=== PATIENT | male | born 1955 | race African-American/Black ===

== ENCOUNTER 2020-03-01 02:42 | Inpatient (IN) | payer MEDICARE ==
[~2020-03-01] VITALS: Ht 167.6 cm; Wt 230.0 kg
[2020-03-01 03:04] LABS: ABSOLUTE BASOPHILS 0.1 thou/uL (0.0-0.2); ABSOLUTE LYMPHOCYTES 2.5 thou/uL (0.8-5.3); ABSOLUTE MONOCYTES 1.8 thou/uL (0.0-1.2); ABSOLUTE NEUTROPHILS 12.7 thou/uL (1.6-8.1); BASOPHILS 0.5 %; EOSINOPHILS 0.1 %; HEMOGLOBIN 14.8 gm/dL (14.0-18.0); LYMPHOCYTES 14.6 %; MCH 32.2 pg (26.0-34.0); MCHC 33.7 g/dL (28.0-37.0); MCV 95.5 fL (80.0-100.0); MONOCYTES 10.5 %; MPV 8.4 fl. (7.2-11.1); NUCLEATED RBCS 0 /100WBC; PLATELET COUNT* 143 thou/uL (150-400); POLYS 74.3 %; RDW-CV 14.3 % (10.5-14.5)
[2020-03-01 03:06] VITALS: BP 147/125
[2020-03-01] MEDS ORDERED: PRINIVIL20 M1 (03:15)
[2020-03-01 03:18] LABS: CALCIUM 7.9 mg/dL (8.5-10.1); CREATININE 3.5 mg/dL (0.6-1.3); POTASSIUM 3.7 mmol/L (3.5-5.1)
[2020-03-01 03:22] LABS: ALBUMIN 3.3 g/dL (3.4-5.0); MAGNESIUM 2.4 mg/dL (1.8-2.4); TOTAL BILIRUBIN 0.6 mg/dL (<0.1-1.0); TOTAL PROTEIN 8.1 g/dL (6.4-8.2)
[2020-03-01 03:25] LABS: BE -6.6 mmol/L (-2 to +3); PCO2 31.3 mmHg (35.0-45.0); pH 7.364 (7.340-7.450)
[2020-03-01 03:28] LABS: INR 1.5; PROTIME 15.4 Seconds (9.20-11.50)
[2020-03-01 03:28] LABS: PO2 150.6 mmHg (75.0-100.0)
[2020-03-01 08:15] VITALS: BP 120/84
[2020-03-01 12:30] VITALS: BP 106/74
--- NOTE | 2020-03-01 13:37 | EKG ---
[place] [address] ELECTROCARDIOGRAM REPORT Name: TAMIA FUENTES Room: [place] [address] ADM IN [facility].#: [id number] Admission: 03/01/20 Attend Phys: Ebony Olivera, Discharge: Date of : 51 Date of Service: 03/01/20 0256 Report #: [id number] THIS REPORT FOR: //name// [facility] ED Test Date: 2020-03-01 Test Time: 02:56:17 Pat Name: TAMIA FUENTES Department: Room: [facility] Gender: M Senior Estimator: USAMA : 1955 Requested By: Na Gusman Order Number: [id number] MD: Dontrell Spicer Measurements Intervals [place] Rate: 95 P: 61 [place]: 157 QRS: -37 QRSD: 128 T: -31 QT: 437 QTc: 550 Interpretive Statements Sinus rhythm Nonspecific IVCD with LAD Inferior infarct, age indeterminate Probable anterior infarct, age indeterminate Lateral leads are also involved Artifact in lead(s) V5 No previous ECG available for comparison Electronically Signed On 03-01-2020 13:37:25 CDT by Dontrell Spicer [email or web address] <ELECTRONICALLY SIGNED> By: Dontrell Spicer MD, [facility] 03/01/20 1337 0256 0256 Dontrell Spicer MD, FAC /EPI
--- NOTE | 2020-03-01 13:39 | EKG ---
[place] [address] ELECTROCARDIOGRAM REPORT Name: TAMIA FUENTES Room: [place] [address] ADM IN [facility]#: [id number] Admission: 03/01/20 Attend Phys: Ebony Olivera, Discharge: Date of : 51 Date of Service: 03/01/20 0419 Report #: [id number] THIS REPORT FOR: //name// [facility] ED Test Date: 2020-03-01 Test Time: 04:19:57 Pat Name: TAMIA FUENTES Department: Room: [facility] Gender: M Human Services Case Manager: [place]AMA : 1955 Requested By: Na Gusman Order Number: [id number] MD: Dontrell Spicer Measurements Intervals [place] Rate: 90 P: 19 [place]: 165 QRS: -29 QRSD: 107 T: -26 QT: 456 QTc: 558 Interpretive Statements Sinus rhythm Borderline left axis deviation Probable anterior infarct, age indeterminate Lateral leads are also involved Prolonged QT interval Baseline wander in lead(s) III,aVF Compared to ECG 03/01/2020 02:56:17 Myocardial infarct finding still present Electronically Signed On 03-01-2020 13:39:17 CDT by Dontrell Spicer [email or web address] <ELECTRONICALLY SIGNED> By: Dontrell Spicer MD, [facility] 03/01/20 1339 0419 Dontrell Spicer MD, [facility] /EPI
[2020-03-01 15:11] VITALS: BP 95/65
[2020-03-01 16:26] LABS: ALBUMIN 3.5 g/dL (3.4-5.0); CALCIUM 8.1 mg/dL (8.5-10.1); CREATININE 3.4 mg/dL (0.6-1.3); MAGNESIUM 2.5 mg/dL (1.8-2.4); PHOSPHORUS* 5.3 mg/dL (2.5-4.9); POTASSIUM 3.9 mmol/L (3.5-5.1)
[2020-03-01 16:39] VITALS: BP 124/75
[2020-03-01 19:50] VITALS: BP 99/72
[2020-03-02] VITALS: BP 101/59
[2020-03-02 04:06] LABS: HEMATOCRIT 39.9 % (42.0-52.0); HEMOGLOBIN 13.3 gm/dL (14.0-18.0); MCH 31.7 pg (26.0-34.0); MCHC 33.3 g/dL (28.0-37.0); MCV 95.1 fL (80.0-100.0); RBC 4.19 mil/uL (4.50-6.00); RDW-CV 14.3 % (10.5-14.5); WBC 13.1 thou/uL (4.0-11.0)
[2020-03-02 04:21] LABS: ALBUMIN 2.9 g/dL (3.4-5.0); ALKALINE PHOSPHATASE 44 U/L (46-116); ANION GAP 8 mmol/L (7-16); BUN 61 mg/dL (7-18); CALCIUM 7.3 mg/dL (8.5-10.1); CHLORIDE 101 mmol/L (98-107); CHOLESTEROL 164 mg/dL (<200); CO2 27 mmol/L (21-32); CREATININE 2.6 mg/dL (0.6-1.3); GLUCOSE 161 mg/dL (70-99); HDL CHOLESTEROL 22 mg/dL (>40); LDL CHOLESTEROL 116 mg/dL (<100); MAGNESIUM 2.7 mg/dL (1.8-2.4); POTASSIUM 5.4 mmol/L (3.5-5.1); SGOT 26 U/L (15-37); SGPT 41 U/L (30-65); SODIUM 136 mmol/L (136-145); TC:HDL 7.5 Ratio (Not establshd); TOTAL BILIRUBIN 0.5 mg/dL (<0.1-1.0); TOTAL PROTEIN 7.2 g/dL (6.4-8.2); TRIGLYCERIDE 134 mg/dL (<150); TROPONIN-I LEVEL 0.14 ng/mL (<0.06); VLDL 27 mg/dL (<40)
[2020-03-02 04:24] LABS: SERUM ASSESSMENT Clear
[2020-03-02 08:00] VITALS: BP 101/68
[2020-03-02 08:17] LABS: URINE BILIRUBIN NEGATIVE (Negative); URINE BLOOD 2+ (Negative); URINE CLARITY CLEAR; URINE COLOR YELLOW; URINE GLUCOSE-RANDOM NEGATIVE (Negative); URINE KETONES NEGATIVE (Negative); URINE LEUKOCYTES-REFLEX NEGATIVE (Negative); URINE NITRITE-REFLEX NEGATIVE (Negative); URINE PROTEIN NEGATIVE (Negative); URINE SPECIFIC GRAVITY >= 1.030 (1.005-1.030)
[2020-03-02 08:36] LABS: BACTERIA-REFLEX 1-9 Few /HPF (None Seen); CASTS None Seen /LPF (None Seen); CRYSTALS None Seen /LPF (None Seen); SQUAMOUS 0-3 Few /LPF (0-3); URINE RBC 0-2 Rare /HPF (0-2); URINE WBC-REFLEX 0-5 Rare /HPF (0-5)
[2020-03-02 12:11] LABS: CALCIUM 7.5 mg/dL (8.5-10.1); CREATININE 2.3 mg/dL (0.6-1.3); POTASSIUM 4.7 mmol/L (3.5-5.1)
--- NOTE | 2020-03-02 12:53 | 2DMMODE ---
[place] [address] 2 D/M-MODE ECHOCARDIOGRAM Name: TAMIA FUENTES Room: [address] IN [facility]#: [id number] Admission: 03/01/20 Attend Phys: Ebony Olivera, Discharge: Date of : 51 Date of Service: 03/02/20 1252 Report #: [id number] THIS REPORT FOR: cc: FAM - No family physician/PCP FAM - No family physician/PCP Abram Pulido MD [facility] ~ APPROVED REPORT Study performed: 03/02/2020 10:45:53 EXAM: Comprehensive 2D, Doppler, and color-flow Echocardiogram Patient Location: In-Patient Room #: 200 Status: routine BSA: 2.71 HR: 74 bpm BP: 101/59 mmHg Rhythm: NSR Other Information Study Quality: Good Indications elevated BNP 2D Dimensions IVSd: 13.01 (7-11mm) LVOT Diam: 22.78 (18-24mm) LVDd: 44.26 mm PWd: 13.01 (7-11mm) Ascending Ao: 36.86 (22-36mm) LVDs: 23.85 (25-40mm) Aortic Root: 36.79 mm Volumes Left Atrial Volume (Systole) LA ESV Index: 30.80 mL/m2 Aortic Valve AoV Peak Volodymyr.: 1.45 m/s AO Peak Gr.: 8.46 mmHg LVOT Max P.22 mmHg AO Mean Gr.: 4.79 mmHg LVOT Mean P.72 mmHg LVOT Max V: 1.14 m/s AO V2 VTI: 20.27 cm LVOT Mean V: 0.77 m/s ABIMAEL (VTI): 3.59 cm2 LVOT V1 VTI: 17.88 [place] [address] 2 D/M-MODE ECHOCARDIOGRAM Name: TAMIA FUENTES Room: [address]#: [id number] Admission: 03/01/20 Attend Phys: Ebony Olivera, Discharge: Date of : 51 Date of Service: 03/02/20 1252 Report #: [id number] Mitral Valve E/A Ratio: 0.65 MV Decel. Time: 269.35 ms MV E Max Volodymyr.: 0.40 m/s MV PHT: 78.11 ms MVA (PHT): 2.82 cm2 TDI E/Lateral E': 3.64 E/Medial E': 4.44 Medial E' Volodymyr.: 0.09 m/s Lateral E' Volodymyr.: 0.11 m/s Pulmonary Valve PV Peak Volodymyr.: 0.62 m/s PV Peak Gr.: 1.55 mmHg Tricuspid Valve RAP Estimate: 15.00 mmHg TR Peak Gr.: 35.62 mmHg RVSP: 50.00 mmHg PA Pressure: 50.00 mmHg Left Ventricle The left ventricle is normal size. There is normal LV segmental wall motion. Mild concentric left ventricular hypertrophy. Left ventricular systolic function is normal. LVEF is 55-60%. Grade I - abnormal relaxation pattern. Right Ventricle Right ventricle is moderately dilated. Right ventricle is moderately hypokinetic. Atria Left atrium is moderately dilated. Right atrium is moderately dilated. Aortic Valve The aortic valve is normal in structure. No aortic regurgitation is present. There is no aortic valvular stenosis. Mitral Valve The mitral valve is normal in structure. There is no mitral valve regurgitation noted. No evidence of mitral valve stenosis. Tricuspid Valve The tricuspid valve is normal in structure. Mild tricuspid regurgitation. Moderate pulmonary hypertension. The RVSP is 50-55 [place] [address] 2 D/M-MODE ECHOCARDIOGRAM Name: TAMIA FUENTES Room: [address]#: [id number] Admission: 03/01/20 Attend Phys: Ebony Olivera, Discharge: Date of : 51 Date of Service: 03/02/20 1252 Report #: [id number] Pulmonic Valve The pulmonary valve is normal in structure. Trace pulmonic regurgitation. Great Vessels The aortic root is normal in size. IVC is dilated and collapses <50% with inspiration. Pericardium There is no pericardial effusion. <Conclusion> The left ventricle is normal size. Mild concentric left ventricular hypertrophy. Left ventricular systolic function is normal. LVEF is 55-60%. Grade I - abnormal relaxation pattern. Right ventricle is moderately dilated. Right ventricle is moderately hypokinetic. Left atrium is moderately dilated. Right atrium is moderately dilated. Mild tricuspid regurgitation. Moderate pulmonary hypertension. The RVSP is 50-55 mmHg. IVC is dilated and collapses <50% with inspiration. <ELECTRONICALLY SIGNED> By: Abram Pulido MD, FACC 03/02/20 1252 125 125 Abram Pulido MD, FACC /INF
--- NOTE | 2020-03-02 14:31 | CON ---
[address] [address] CONSULTATION Name: TAMIA FUENTES Room: [address] IN .R.#: [id number] Admission: 03/01/20 Attend Phys: Ebony Olivera MD Discharge: Date of : 51 Report #: [id number] THIS REPORT FOR: //name// cc: DAGMAR [place] No family physician/PCP DAGMAR - No family physician/PCP ~ THIS REPORT FOR: //name// CC: DAGMAR physician/PCP Ebony Olivera DATE OF SERVICE: 03/01/2020 CARDIOLOGY CONSULTATION HISTORY OF PRESENT ILLNESS: The patient is a 64-year-old single male who I was asked to see in the ER today after he complained of being short of breath. The history is obtained from the patient. There are no family members available. The patient has never been here at [facility] before. He is primarily cared for at [facility]. He is not very active because of his large size. He is 6 feet 6 inches and weighs 430 pounds. He has chronic lymphedema of his legs and wears leg wrappings. He has not been hospitalized for a long time. He states recently he has been short of breath and has been coughing. He denied any fever, chest pain, palpitations, or syncope. He has had no appetite for 5 days, but denied any vomiting or diarrhea. He finally called the ambulance and brought here to [place]'s morning. I have asked to see him for further evaluation and treatment. PAST MEDICAL HISTORY: He has had tonsillectomy. He apparently had lung lobectomy in the past for benign nodule at [facility]. He has a history of hypertension. No history of diabetes. CURRENT MEDICATIONS: Include lisinopril for blood pressure. ALLERGIES: He has no known drug allergies. FAMILY HISTORY: Negative for heart disease. SOCIAL HISTORY: He is , lives here in [place] with a friend. 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 No smoking or alcohol abuse. Has used marijuana in the past. REVIEW OF SYSTEMS: He has sleep apnea, but somebody stole his CPAP. No history of stroke. He does wear glasses. No asthma, liver disease, kidney disease, cancer, psychiatric illness, or chronic skin condition. PHYSICAL EXAMINATION: [place] [address] CONSULTATION Name: TAMIA FUENTES Room: [address]#: [id number] Admission: 03/01/20 Attend Phys: Ebony Olivera MD Discharge: Date of : 51 Report #: [id number] GENERAL: Revealed a large black male, lying in bed, appeared in no acute distress. VITAL SIGNS: He had a blood pressure of 140/90, pulse is 80. He is afebrile. HEENT: He was anicteric. Conjunctivae pink. Mucous membranes appear dry. NECK: Veins difficult to assess due to obesity. CHEST: Revealed decreased breath sounds at the bases. CARDIOVASCULAR: Regular rate and rhythm. No significant murmur. ABDOMEN: Obese. EXTREMITIES: He had severe lymphedema of both lower extremities. SKIN: Warm and dry. NEUROLOGIC: He is very slow moving. PSYCHIATRIC: Mood appeared depressed. IMAGING DATA: ECG showed a sinus rhythm, left axis deviation, poor R-wave progression, nonspecific T-wave changes were noted. His workup in the Emergency Room today included a portable chest x-ray that showed normal heart size and clear lung rice. LABORATORY DATA: Sodium 139, BUN 53, creatinine 3.5, albumin 3.3. Lactic acid 2.3. Troponin 0.39. BNP 40,761. White blood cell count 17.0, hemoglobin 14.8. IMPRESSION AND RECOMMENDATIONS: 1. Borderline elevation of troponin. No history of angina. In light of his multiple medical problems and severe obesity, I would not recommend stress testing nor cardiac catheterization at this time. 2. Abnormal ECG. Recommend echocardiogram. 3. Cough. Suspect bronchitis. 4. Chronic kidney disease. 5. Lymphedema. 6. Hypertension. The patient has been on an KAUR inhibitor. 7. History of sleep apnea. <ELECTRONICALLY SIGNED> By: Dontrell Spicer MD, FACC 03/02/20 1431 0928 1010Dasima Spicer MD, FACC /nt
--- NOTE | 2020-03-02 16:05 | EKG ---
[place] [address] ELECTROCARDIOGRAM REPORT Name: TAMIA FUENTES Room: [address] IN ..#: [id number] Admission: 03/01/20 Attend Phys: Ebony Olivera, Discharge: Date of : 51 Date of Service: 03/02/20 1208 Report #: [id number] THIS REPORT FOR: //name// [facility] Test Date: 2020-03-02 Test Time: 12:08:05 Pat Name: TAMIA FUENTES Department: Room: [facility] Gender: M Record Center Coordinator: [place] : 1955 Requested By: Dontrell Spicer Order Number: [id number] Reading MD: Dontrell Spicer Measurements Intervals [place] Rate: 73 P: 59 [place]: 141 QRS: -27 QRSD: 123 T: -5 QT: 447 QTc: 493 Interpretive Statements Sinus rhythm Multiform supraventricular premature complexes Nonspecific intraventricular conduction delay Nonspecific T abnormalities, anterior leads Compared to ECG 03/01/2020 04:19:57 Intraventricular conduction delay now present Prolonged QT interval no longer present Electronically Signed On 03-02-2020 16:04:55 CDT by Dontrell Spicer [email or web address] <ELECTRONICALLY SIGNED> By: Dontrell Spicer MD, FAC 03/02/20 1604 1208 1208 Dontrell Spicer MD, FAC /EPI
[2020-03-02 16:20] VITALS: BP 110/83
[2020-03-02 20:00] VITALS: BP 113/77
[2020-03-02 23:33] VITALS: BP 106/55
[2020-03-03 02:35] LABS: CALCIUM 7.3 mg/dL (8.5-10.1); CREATININE 2.2 mg/dL (0.6-1.3); POTASSIUM 5.1 mmol/L (3.5-5.1)
[2020-03-03 02:40] LABS: ALBUMIN 2.9 g/dL (3.4-5.0); CALCIUM 7.2 mg/dL (8.5-10.1); CREATININE 2.2 mg/dL (0.6-1.3); MAGNESIUM 2.8 mg/dL (1.8-2.4); PHOSPHORUS* 3.9 mg/dL (2.5-4.9); POTASSIUM 5.1 mmol/L (3.5-5.1)
[2020-03-03 04:00] VITALS: BP 108/61
[2020-03-03 08:00] VITALS: BP 96/77
--- NOTE | 2020-03-03 11:07 | EKG ---
[place] [address] ELECTROCARDIOGRAM REPORT Name: TAMIA FUENTES Room: [address] ADM IN .R.#: [id number] Admission: 03/01/20 Attend Phys: Ebony Olivera, Discharge: Date of : 51 Date of Service: 03/02/20 2356 Report #: [id number] THIS REPORT FOR: //name// [facility] Test Date: 2020-03-02 Test Time: 23:56:13 Pat Name: TAMIA FUENTES Department: Room: [address] Gender: M Marketing Assistant: : 1955 Requested By: Ebony Olivera Order Number: [id number] Reading MD: Dontrell Spicer Measurements Intervals [place] Rate: 125 P: [place]: QRS: -36 QRSD: 108 T: -5 QT: 318 QTc: 459 Interpretive Statements Atrial fibrillation Left axis deviation Compared to ECG 03/02/2020 12:08:05 Left-axis deviation now present Sinus rhythm no longer present Electronically Signed On 03-03-2020 11:06:47 CDT by Dontrell Spicer [email or web address] <ELECTRONICALLY SIGNED> By: Dontrell Spicer MD, [facility] 03/03/20 1106 Dontrell Spicer MD, [facility] /EPI
[2020-03-03 12:00] VITALS: BP 105/58
[2020-03-03 18:39] VITALS: BP 113/69
[2020-03-03 20:00] VITALS: BP 104/54
[2020-03-04] VITALS: BP 128/73
[2020-03-04 04:30] VITALS: BP 127/83
[2020-03-04 07:45] VITALS: BP 114/75
[2020-03-04 11:56] VITALS: BP 134/76
--- NOTE | 2020-03-04 13:13 | EKG ---
[place] [address] ELECTROCARDIOGRAM REPORT Name: TAMIA FUENTES Room: [address] ADM IN .R.#: [id number] Admission: 03/01/20 Attend Phys: Ebony Olivera, Discharge: Date of : 51 Date of Service: 03/04/20 0818 Report #: [id number] THIS REPORT FOR: //name// [facility] Test Date: 2020-03-04 Test Time: 08:18:03 Pat Name: TAMIA FUENTES Department: Room: [address] Gender: M Geographic Analyst: 1887 : 1955 Requested By: Dontrell Spicer Order Number: [id number] Reading MD: Walt Johnson Measurements Intervals [place] Rate: 60 P: 27 [place]: 161 QRS: -20 QRSD: 138 T: -15 QT: 509 QTc: 509 Interpretive Statements Sinus rhythm Nonspecific intraventricular conduction delay Abnrm T, consider ischemia, anterolateral lds Compared to ECG 03/02/2020 23:56:13 Intraventricular conduction delay now present Possible ischemia now present Atrial fibrillation no longer present Left-axis deviation no longer present Electronically Signed On 03-04-2020 13:13:02 CDT by Walt Johnson [email or web address] <ELECTRONICALLY SIGNED> By: Lawanda Johnson MD, [facility] 03/04/20 1313 7 7 Lawanda Johnson MD, [facility] /EPI
[2020-03-04 15:55] VITALS: BP 164/80
[2020-03-04 20:00] VITALS: BP 116/75
[2020-03-05] VITALS (8 sets, daily range): BP systolic 128–158; BP diastolic 52–92
[2020-03-05 07:59] LABS: ABSOLUTE LYMPHOCYTES 1.8 thou/uL (0.8-5.3); ABSOLUTE MONOCYTES 1.1 thou/uL (0.0-1.2); ABSOLUTE NEUTROPHILS 12.5 thou/uL (1.6-8.1); BASOPHILS 0.2 %; HEMATOCRIT 38.1 % (42.0-52.0); HEMOGLOBIN 12.5 gm/dL (14.0-18.0); LYMPHOCYTES 11.7 %; MCH 31.1 pg (26.0-34.0); MCHC 32.9 g/dL (28.0-37.0); MCV 94.7 fL (80.0-100.0); MONOCYTES 7.3 %; MPV 8.7 fl. (7.2-11.1); NUCLEATED RBCS 0 /100WBC; PLATELET COUNT* 169 thou/uL (150-400); POLYS 80.8 %; RBC 4.02 mil/uL (4.50-6.00); RDW-CV 14.3 % (10.5-14.5); WBC 15.5 thou/uL (4.0-11.0)
[2020-03-06] VITALS: BP 156/80
[2020-03-06 04:00] VITALS: BP 163/79
[2020-03-06 04:54] LABS: HEMATOCRIT 39.1 % (42.0-52.0); HEMOGLOBIN 13.1 gm/dL (14.0-18.0); MCH 32.1 pg (26.0-34.0); MCHC 33.4 g/dL (28.0-37.0); MPV 9.2 fl. (7.2-11.1); NUCLEATED RBCS 0 /100WBC; PLATELET COUNT* 167 thou/uL (150-400); RBC 4.07 mil/uL (4.50-6.00); RDW-CV 14.8 % (10.5-14.5); WBC 18.4 thou/uL (4.0-11.0)
[2020-03-06 05:45] LABS: ABSOLUTE LYMPHOCYTES 1.3 thou/uL (0.8-5.3); ABSOLUTE MONOCYTES 0.9 thou/uL (0.0-1.2); ABSOLUTE NEUTROPHILS 16.2 thou/uL (1.6-8.1); ANISOCYTOSIS 1+; PLATELET ESTIMATE ADEQUATE; POIKILOCYTOSIS 1+
[2020-03-06 08:00] VITALS: BP 155/83
--- NOTE | 2020-03-06 14:38 | CON ---
[address] [address] CONSULTATION Name: GINATAMIA E Room: [address] IN .R.#: [id number] Admission: 03/01/20 Attend Phys: Ebony Olivera MD Discharge: Date of : 51 Report #: [id number] THIS REPORT FOR: //name// cc: DAGMAR - Naomi family physician/PCP DAGMAR - No family physician/PCP ~ THIS REPORT FOR: //name// CC: [facility] physician/PCP Ebony Olivera CONSULTING PHYSICIAN: Ebony Olivera MD. REASON FOR CONSULTATION: Acute kidney injury. HISTORY OF PRESENT ILLNESS: A 64-year-old gentleman admitted with cough and shortness of breath. He had poor appetite for the past 4-5 days. He denies any regular NSAID use. He does take lisinopril. He denies any new medications. No recent antibiotics. He has no underlying kidney disease. Baseline kidney function is unknown, but he is admitted with a creatinine of 3.5. He had a chest x-ray, which was unrevealing and he is under investigation for possible COVID infection. He has had no difficulty voiding. REVIEW OF SYSTEMS: Constitutional, psych, heme, eyes, ENT, respiratory, cardiac, GI, , endocrine, all negative except as documented above. PAST MEDICAL HISTORY: Hypertension. Apparently, he has a history of sleep apnea, chronic lymphedema. MEDICATIONS: Reviewed. FAMILY HISTORY: Not pertinent in this 64-year-old gentleman. SOCIAL HISTORY: No smoking. PHYSICAL EXAMINATION: VITAL SIGNS: Blood pressure is 106/74, pulse 90, respirations 22, temperature 36.9. GENERAL: No acute distress. EYES: Open. EARS: Externally normal. NECK: Supple. CARDIOVASCULAR: Regular rate. LUNGS: Diminished. ABDOMEN: Soft. MUSCULOSKELETAL: Bilateral chronic lymphedema. PSYCHIATRIC: Awake, [place] [address] CONSULTATION Name: CHELSEY FUENTESANGELA Adams Room: [address]#: [id number] Admission: 03/01/20 Attend Phys: Ebony Olivera MD Discharge: Date of : 51 Report #: [id number] LABORATORY DATA: Lactic acid 2.8. PH 7.36, pCO2 of 31, bicarbonate 18. White cell count 17, hemoglobin 15, platelets 143. Sodium 139, potassium 3.7, chloride 100, bicarbonate 22, BUN 53, creatinine 3.5, glucose 173, calcium 7.9, magnesium 2.4, albumin 3.3. ASSESSMENT: 1. Acute kidney injury in the setting of poor intake while on lisinopril with an admission creatinine of 3.5, baseline creatinine unknown. Kidney ultrasound shows kidneys of 12.3 and 11.7 cm in size with left renal cortical thinning, no hydronephrosis. 2. Hypertension. 3. Chronic lymphedema. 4. History of obstructive sleep apnea. 5. Lactic acidosis. PLAN: 1. Antibiotics have been ordered. 2. We will give gentle hydration. 3. UA ordered. 4. Chest x-ray was unrevealing. Echocardiogram has been ordered. The patient was seen by Cardiology for elevated troponin. 5. Check bladder scan. Check CK. Check labs again in the a.m. Thank you for requesting my opinion in the care and management of this patient. <ELECTRONICALLY SIGNED> By: Dona Ruffin MD 03/06/20 1438 1410 1425Abiruthann Ruffin MD /nt
[2020-03-06 15:22] VITALS: BP 157/76
--- NOTE | 2020-03-06 17:40 | EKG ---
[place] [address] ELECTROCARDIOGRAM REPORT Name: TAMIA FUENTES Room: [address] ADM IN .R.#: [id number] Admission: 03/01/20 Attend Phys: Ebony Olivera, Discharge: Date of : 51 Date of Service: 03/05/20 1106 Report #: [id number] THIS REPORT FOR: //name// [facility] Test Date: 2020-03-05 Test Time: 11:06:37 Pat Name: TAMIA FUENTES Department: Room: [address] Gender: M Tool Specialist: UNKNOWN : 1955 Requested By: Lawanda Johnson Order Number: [id number] Reading MD: Abram Pulido Measurements Intervals [place] Rate: 58 P: 52 [place]: 154 QRS: -24 QRSD: 128 T: -26 QT: 516 QTc: 507 Interpretive Statements Sinus rhythm Nonspecific T abnormalities, anterior leads Baseline wander in lead(s) V1 Compared to ECG 03/04/2020 08:18:03 No significant changes noted Electronically Signed On 03-06-2020 17:40:02 CDT by Abram Pulido [email or web address] <ELECTRONICALLY SIGNED> By: Abram Pulido MD, FACC 03/06/20 1740 1106 1106 Abram Pulido MD, FACC /EPI
--- NOTE | 2020-03-06 17:44 | EKG ---
[place] [address] ELECTROCARDIOGRAM REPORT Name: TAMIA FUENTES Room: [address] ADM IN .R.#: [id number] Admission: 03/01/20 Attend Phys: Ebony Olivera, Discharge: Date of : 51 Date of Service: 03/06/20 0947 Report #: [id number] THIS REPORT FOR: //name// [facility] Test Date: 2020-03-06 Test Time: 09:47:52 Pat Name: TAMIA FUENTES Department: Room: [address] Gender: M Cook Fast Food: CEFERINO : 1955 Requested By: Lawanda Johnson Order Number: [id number] Reading MD: Abram Pulido Measurements Intervals [place] Rate: 59 P: 11 [place]: 174 QRS: 93 QRSD: 125 T: 93 QT: 538 QTc: 533 Interpretive Statements Sinus rhythm Left atrial enlargement Nonspecific intraventricular conduction delay Abnrm T, consider ischemia, anterolateral lds Compared to ECG 03/05/2020 11:06:37 Possible ischemia now present T-wave abnormality no longer present Electronically Signed On 03-06-2020 17:44:43 CDT by Abram Pulido [email or web address] <ELECTRONICALLY SIGNED> By: Abram Pulido MD, FACC 03/06/20 1744 Abram Pulido MD, FAC /EPI
[2020-03-06 18:58] VITALS: BP 153/80
[2020-03-06 20:00] VITALS: BP 152/68
[2020-03-07] VITALS: BP 166/87
[2020-03-07 04:00] VITALS: BP 155/80
[2020-03-07 04:58] LABS: ABSOLUTE LYMPHOCYTES 1.1 thou/uL (0.8-5.3); ABSOLUTE MONOCYTES 1.5 thou/uL (0.0-1.2); ABSOLUTE NEUTROPHILS 20.1 thou/uL (1.6-8.1); BASOPHILS 0.2 %; EOSINOPHILS 0.1 %; HEMATOCRIT 40.2 % (42.0-52.0); HEMOGLOBIN 13.2 gm/dL (14.0-18.0); LYMPHOCYTES 4.8 %; MCH 31.5 pg (26.0-34.0); MCHC 32.9 g/dL (28.0-37.0); MCV 95.7 fL (80.0-100.0); MONOCYTES 6.4 %; MPV 9.1 fl. (7.2-11.1); NUCLEATED RBCS 0 /100WBC; PLATELET COUNT* 180 thou/uL (150-400); POLYS 88.5 %; RBC 4.19 mil/uL (4.50-6.00); RDW-CV 14.5 % (10.5-14.5); WBC 22.7 thou/uL (4.0-11.0)
[2020-03-07 08:00] VITALS: BP 161/86
[2020-03-07 12:00] VITALS: BP 161/87
[2020-03-07 16:00] VITALS: BP 138/77
--- NOTE | 2020-03-07 16:16 | EKG ---
[place] [address] ELECTROCARDIOGRAM REPORT Name: TAMIA FUENTES Room: [address] ADM IN M.R.#: [id number] Admission: 03/01/20 Attend Phys: Ebony Olivera, Discharge: Date of : 51 Date of Service: 03/07/20 0908 Report #: [id number] THIS REPORT FOR: //name// [facility] Test Date: 2020-03-07 Test Time: 09:08:07 Pat Name: TAMIA FUENTES Department: Room: [address] Gender: M Internal Medicine Hospitalist: CEFER[place] : 1955 Requested By: Lawanda Johnson Order Number: [id number] Reading MD: Balbir Villela Measurements Intervals [place] Rate: 58 P: 55 [place]: 161 QRS: -26 QRSD: 131 T: -6 QT: 536 QTc: 527 Interpretive Statements Sinus rhythm Nonspecific intraventricular conduction delay Nonspecific T abnormalities, anterior leads; consider ischemia Compared to ECG 03/06/2020 09:47:52 T-wave abnormality now present Atrial abnormality no longer present Possible ischemia persists Electronically Signed On 03-07-2020 16:16:08 CDT by Balbir V[place]la [email or web address] <ELECTRONICALLY SIGNED> By: Balbir [place]la MD, [facility] 03/07/20 1616 7 0908 Balbir [place]la MD, [facility] /EPI
[2020-03-07 20:00] VITALS: BP 149/81
[2020-03-08] VITALS: BP 148/84
[2020-03-08 04:00] VITALS: BP 125/62
[2020-03-08 04:34] LABS: ABSOLUTE LYMPHOCYTES 1.7 thou/uL (0.8-5.3); ABSOLUTE MONOCYTES 1.6 thou/uL (0.0-1.2); ABSOLUTE NEUTROPHILS 20.4 thou/uL (1.6-8.1); BASOPHILS 0.1 %; HEMATOCRIT 41.7 % (42.0-52.0); HEMOGLOBIN 13.7 gm/dL (14.0-18.0); LYMPHOCYTES 7.1 %; MCH 31.3 pg (26.0-34.0); MCHC 32.8 g/dL (28.0-37.0); MCV 95.5 fL (80.0-100.0); MONOCYTES 6.8 %; NUCLEATED RBCS 0 /100WBC; PLATELET COUNT* 185 thou/uL (150-400); RBC 4.37 mil/uL (4.50-6.00); RDW-CV 14.8 % (10.5-14.5); WBC 23.7 thou/uL (4.0-11.0)
[2020-03-08 05:17] LABS: CREATININE 1.5 mg/dL (0.6-1.3)
[2020-03-08 08:00] VITALS: BP 159/81
[2020-03-08] MEDS ORDERED: PACERONE 200 M200 M1 PO (10:31)
[2020-03-08] MEDS ORDERED: PREDNISONE 20 M20 M1 PO (10:31)
[2020-03-08] MEDS ORDERED: ELIQUIS5 MG PO (10:31)
[2020-03-08] MEDS ORDERED: PROCARDIA XL30 MG PO (10:31)
[2020-03-08] MEDS ORDERED: CEFDINIR300 MG PO (10:31)
[2020-03-08] MEDS ORDERED: ELIQUIS5 M1 PO (10:34)
[2020-03-08 11:35] VITALS: BP 172/80
--- NOTE | 2020-03-08 13:27 | EKG ---
[place] [address] ELECTROCARDIOGRAM REPORT Name: TAMIA FUENTES Room: [address] ADM IN M.R.#: [id number] Admission: 03/01/20 Attend Phys: Ebony Olivera, Discharge: Date of : 51 Date of Service: 03/08/20 0831 Report #: [id number] THIS REPORT FOR: //name// [facility] Test Date: 2020-03-08 Test Time: 08:31:12 Pat Name: TAMIA FUENTES Department: Room: [address] Gender: M Merchandiser: CEFERINO : 1955 Requested By: Brigitte Morales Order Number: [id number] Reading MD: Balbir [place]la Measurements Intervals [place] Rate: 53 P: 59 [place]: 162 QRS: -35 QRSD: 154 T: -59 QT: 565 QTc: 531 Interpretive Statements Sinus rhythm Nonspecific intraventricular conduction delay Abnrm T, consider ischemia, anterolateral leads and inferior leads Compared to ECG 03/07/2020 09:08:07 Possible ischemia still present Electronically Signed On 03-08-2020 13:27:31 CDT by Balbir [place]la [email or web address] <ELECTRONICALLY SIGNED> By: Balbir [place]la MD, FAC 03/08/20 1327 0 Balbir [place]la MD, FAC /EPI
[2020-03-08 15:49] VITALS: BP 149/77
[2020-03-08 17:54] VITALS: BP 149/77
== END 2020-03-08 18:44 | disposition home or self-care (01) | DRG 177 ==
LOC: EDSEX 02:42 → M.ERS 02:42 → M.2W 04:15 → M.TBA-ER 04:15 → M.2W 15:30
PROVIDERS: Emergency Medicine; Internal Medicine Nephrology; Registered Nurse; ADMIT Internal Medicine; ATTEND Internal Medicine
PROC: 5A09357 Assistance with Respiratory Ventilation, Less than 24 Consecutive Hours, Continuous Positive Airway Pressure (ICD-10-PCS; principal; 2020-03-01)
DX: J69.0 Pneumonitis due to inhalation of food and vomit (principal); I26.99 Other pulmonary embolism without acute cor pulmonale; J96.01 Acute respiratory failure with hypoxia; N17.0 Acute kidney failure with tubular necrosis; Z68.45 Body mass index [BMI] 70 or greater, adult; R65.10 Systemic inflammatory response syndrome (SIRS) of non-infectious origin without acute organ dysfunction; E66.01 Morbid (severe) obesity due to excess calories; R79.89 Other specified abnormal findings of blood chemistry; I87.8 Other specified disorders of veins; I89.0 Lymphedema, not elsewhere classified; G47.33 Obstructive sleep apnea (adult) (pediatric); I27.20 Pulmonary hypertension, unspecified; J98.01 Acute bronchospasm; I48.0 Paroxysmal atrial fibrillation; I51.7 Cardiomegaly; I12.9 Hypertensive chronic kidney disease with stage 1 through stage 4 chronic kidney disease, or unspecified chronic kidney disease; E11.22 Type 2 diabetes mellitus with diabetic chronic kidney disease; N18.9 Chronic kidney disease, unspecified; E87.5 Hyperkalemia; Z20.828 Contact with and (suspected) exposure to other viral communicable diseases; Z79.899 Other long term (current) drug therapy

== ENCOUNTER 2020-03-21 13:25 | Inpatient (IN) | payer MEDICARE ==
[~2020-03-21] VITALS: Ht 198.1 cm; Wt 176.9 kg
[~2020-03-21 13:25] MED LIST: CEFDINIR300 MG PO; ELIQUIS5 M1 PO; ELIQUIS5 MG PO; PACERONE 200 M200 M1 PO; PREDNISONE 20 M20 M1 PO; PRINIVIL20 M1; PROCARDIA XL30 MG PO
[2020-03-21 13:27] VITALS: BP 143/86
[2020-03-21 14:21] LABS: ABSOLUTE BASOPHILS 0.1 thou/uL (0.0-0.2); ABSOLUTE EOSINOPHILS 0.3 thou/uL (0.0-0.7); ABSOLUTE LYMPHOCYTES 1.2 thou/uL (0.8-5.3); ABSOLUTE MONOCYTES 0.5 thou/uL (0.0-1.2); BASOPHILS 0.7 %; EOSINOPHILS 4.1 %; HEMATOCRIT 38.4 % (42.0-52.0); HEMOGLOBIN 12.9 gm/dL (14.0-18.0); LYMPHOCYTES 17.2 %; MCH 31.7 pg (26.0-34.0); MCHC 33.7 g/dL (28.0-37.0); MCV 93.9 fL (80.0-100.0); MONOCYTES 6.8 %; MPV 8.2 fl. (7.2-11.1); NUCLEATED RBCS 0 /100WBC; PLATELET COUNT* 138 thou/uL (150-400); POLYS 71.2 %; RBC 4.08 mil/uL (4.50-6.00); RDW-CV 14.8 % (10.5-14.5); WBC 7.1 thou/uL (4.0-11.0)
[2020-03-21 14:30] LABS: CALCIUM 8.2 mg/dL (8.5-10.1); CREATININE 1.5 mg/dL (0.6-1.3); POTASSIUM 4.2 mmol/L (3.5-5.1)
[2020-03-21 14:40] LABS: ALBUMIN 2.8 g/dL (3.4-5.0); TOTAL BILIRUBIN 0.9 mg/dL (<0.1-1.0); TOTAL PROTEIN 7.3 g/dL (6.4-8.2)
[2020-03-21 15:04] LABS: APTT 26.4 Seconds (25.0-31.3); INR 1.1; PROTIME 11.3 Seconds (9.20-11.50)
--- NOTE | 2020-03-21 15:33 | EKG ---
[place] [address] ELECTROCARDIOGRAM REPORT Name: TAMIA FUENTES Room: [facility]#: [id number] Admission: 03/21/20 Attend Phys: Discharge: Date of : 51 Date of Service: 03/21/20 1356 Report #: [id number] THIS REPORT FOR: //name// [facility] ED Test Date: 2020-03-21 Test Time: 13:56:28 Pat Name: TAMIA FUENTES Department: Room: Gender: Rehab Office Coordinator: [facility] : 1955 Requested By: Constantine Nevarez Order Number: [id number] MD: Abram Pulido Measurements Intervals [place] Rate: 77 P: 62 [place]: 155 QRS: -23 QRSD: 97 T: 79 QT: 358 QTc: 406 Interpretive Statements Sinus rhythm Consider left atrial enlargement Borderline left axis deviation T wave abnormalities Compared to ECG 03/08/2020 08:31:12 T-wave abnormality now present Intraventricular conduction delay no longer present Electronically Signed On 03-21-2020 15:32:53 CDT by Abram Pulido [email or web address] <ELECTRONICALLY SIGNED> By: Abram Pulido MD, FACC 03/21/20 1532 1356 1356 Abram Pulido MD, [facility] /EPI
[2020-03-21 17:20] VITALS: BP 143/86
[2020-03-21 17:50] VITALS: BP 142/83
[2020-03-21 19:36] VITALS: BP 148/72
[2020-03-22 04:54] LABS: CALCIUM 8.1 mg/dL (8.5-10.1); CREATININE 1.3 mg/dL (0.6-1.3); POTASSIUM 3.8 mmol/L (3.5-5.1)
[2020-03-22 07:32] VITALS: BP 130/68
[2020-03-22 15:55] VITALS: BP 143/70
--- NOTE | 2020-03-22 17:14 | EKG ---
[place] [address] ELECTROCARDIOGRAM REPORT Name: TAMIA FUENTES Room: [address] IN M.R.#: [id number] Admission: 03/22/20 Attend Phys: Rene Amaya Discharge: Date of : 51 Date of Service: 03/22/20 1308 Report #: [id number] THIS REPORT FOR: //name// [facility] Test Date: 2020-03-22 Test Time: 13:08:05 Pat Name: TAMIA FUENTES Department: Room: [address] Gender: M Embalmer/Funeral Director: CEFERINO : 1955 Requested By: Rene Greco Order Number: [id number] Monet MD: Balbir Villela Measurements Intervals [place] Rate: 89 P: 54 [place]: 170 QRS: -23 QRSD: 95 T: 108 QT: 339 QTc: 413 Interpretive Statements Sinus rhythm Borderline left axis deviation Nonspecific T abnormalities, lateral leads Compared to ECG 03/21/2020 13:56:28 No significant changes Electronically Signed On 03-22-2020 17:14:38 CDT by Balbir Villela [email or web address] <ELECTRONICALLY SIGNED> By: Balbir Villela MD, [facility] 03/22/20 1714 1308 1308 Balbir Villela MD, [facility] /EPI
[2020-03-22 19:36] VITALS: BP 136/75
[2020-03-23 05:25] LABS: HEMATOCRIT 37.7 % (42.0-52.0); HEMOGLOBIN 12.8 gm/dL (14.0-18.0); MCH 31.8 pg (26.0-34.0); MCV 93.6 fL (80.0-100.0); MPV 8.3 fl. (7.2-11.1); RBC 4.02 mil/uL (4.50-6.00); RDW-CV 14.8 % (10.5-14.5)
[2020-03-23 05:26] LABS: CALCIUM 8.2 mg/dL (8.5-10.1); CREATININE 1.2 mg/dL (0.6-1.3); MAGNESIUM 1.9 mg/dL (1.8-2.4); POTASSIUM 4.4 mmol/L (3.5-5.1)
[2020-03-23 07:30] VITALS: BP 135/90
--- NOTE | 2020-03-23 12:59 | 2DMMODE ---
[place] [address] 2 D/M-MODE ECHOCARDIOGRAM Name: TAMIA FUENTES Room: [address] IN [facility].#: [id number] Admission: 03/22/20 Attend Phys: Rene Amaya Discharge: Date of : 51 Date of Service: 03/23/20 1258 Report #: [id number] THIS REPORT FOR: cc: Physician not on staff Physician not on staff Balbir Villela MD [facility] ~ APPROVED REPORT Study performed: 03/23/2020 09:26:00 EXAM: Limited 2D, Doppler, and color-flow Echocardiogram Patient Location: Bedside BSA: 2.97 HR: 86 bpm BP: 135/90 mmHg Other Information Study Quality: Technically Limited Technically limited study due to body habitus, inability to position patient. Indications Reassess PA pressure 2D Dimensions IVSd: 15.76 (7-11mm) LVOT Diam: 18.38 (18-24mm) LVDd: 50.68 mm PWd: 15.06 (7-11mm) LVDs: 39.05 (25-40mm) Aortic Root: 34.58 mm Tricuspid Valve RAP Estimate: 5.00 mmHg TR Peak Gr.: 26.35 mmHg RVSP: 31.35 mmHg PA Pressure: 31.35 mmHg Left Ventricle Left ventricle is at the upper limits of normal. Borderline concentric left ventricular hypertrophy. The left ventricular systolic function is normal. The left ventricular ejection fraction is within the normal range. LVEF is 55%. Aortic Valve The aortic valve [place] [address] 2 D/M-MODE ECHOCARDIOGRAM Name: GINATAMIA Room: [address] IN [facility]#: [id number] Admission: 03/22/20 Attend Phys: Rene Amaya Discharge: Date of : 51 Date of Service: 03/23/20 1258 Report #: [id number] Mitral Valve The mitral valve is normal in structure. Tricuspid Valve Trace tricuspid regurgitation. <Conclusion> Left ventricle is at the upper limits of normal. Borderline concentric left ventricular hypertrophy. The left ventricular systolic function is normal. The left ventricular ejection fraction is within the normal range. LVEF is 55%. The aortic valve is normal in structure. The mitral valve is normal in structure. Trace tricuspid regurgitation. <ELECTRONICALLY SIGNED> By: Balbir Villela MD, [facility] 03/23/20 1258 1258 1258 Balbir Villela MD, FACC /INF
[2020-03-23 18:36] VITALS: BP 150/76
[2020-03-23 20:00] VITALS: BP 148/80
[2020-03-24 04:01] LABS: ABSOLUTE EOSINOPHILS 0.2 thou/uL (0.0-0.7); ABSOLUTE LYMPHOCYTES 1.9 thou/uL (0.8-5.3); ABSOLUTE MONOCYTES 0.7 thou/uL (0.0-1.2); ABSOLUTE NEUTROPHILS 7.7 thou/uL (1.6-8.1); BASOPHILS 0.4 %; EOSINOPHILS 1.9 %; HEMATOCRIT 36.2 % (42.0-52.0); HEMOGLOBIN 12.3 gm/dL (14.0-18.0); LYMPHOCYTES 18.1 %; MCH 31.9 pg (26.0-34.0); MCHC 33.9 g/dL (28.0-37.0); MCV 94.2 fL (80.0-100.0); MONOCYTES 6.6 %; NUCLEATED RBCS 0 /100WBC; PLATELET COUNT* 178 thou/uL (150-400); RBC 3.85 mil/uL (4.50-6.00); RDW-CV 14.5 % (10.5-14.5); WBC 10.5 thou/uL (4.0-11.0)
[2020-03-24 04:11] LABS: CALCIUM 8.2 mg/dL (8.5-10.1); CREATININE 1.5 mg/dL (0.6-1.3); MAGNESIUM 1.9 mg/dL (1.8-2.4); POTASSIUM 3.6 mmol/L (3.5-5.1)
[2020-03-24 08:25] VITALS: BP 162/85
--- NOTE | 2020-03-24 13:58 | EKG ---
[place] [address] ELECTROCARDIOGRAM REPORT Name: TAMIA FUENTES Room: [address] IN M.R.#: [id number] Admission: 03/22/20 Attend Phys: Rene Amaya Discharge: Date of : 51 Date of Service: 03/24/20 1051 Report #: [id number] THIS REPORT FOR: //name// [facility] Test Date: 2020-03-24 Test Time: 10:51:43 Pat Name: TAMIA FUENTES Department: Room: [facility] Gender: M Oscillograph Technician: LUZ MARIA : 1955 Requested By: Rene Greco Order Number: [id number] Monet MD: Balbir Villela Measurements Intervals [place] Rate: 148 P: [place]: QRS: -24 QRSD: 88 T: 141 QT: 288 QTc: 453 Interpretive Statements Atrial fibrillation Borderline left axis deviation Abnormal R-wave progression, late transition Repolarization abnormality, prob rate related Compared to ECG 03/22/2020 13:08:05 Early repolarization now present Sinus rhythm no longer present Electronically Signed On 03-24-2020 13:58:33 CDT by Balbir Villela [email or web address] <ELECTRONICALLY SIGNED> By: Balbir Villela MD, FACC 03/24/20 1358 1051 1051 Balbir Villela MD, FACC /EPI
[2020-03-24 17:00] VITALS: BP 102/60
[2020-03-24 20:00] VITALS: BP 112/65
[2020-03-25] VITALS: BP 131/76
[2020-03-25 04:00] VITALS: BP 121/63
[2020-03-25 04:40] LABS: ABSOLUTE EOSINOPHILS 0.1 thou/uL (0.0-0.7); ABSOLUTE LYMPHOCYTES 1.4 thou/uL (0.8-5.3); ABSOLUTE MONOCYTES 0.7 thou/uL (0.0-1.2); ABSOLUTE NEUTROPHILS 7.2 thou/uL (1.6-8.1); BASOPHILS 0.3 %; HEMATOCRIT 36.1 % (42.0-52.0); HEMOGLOBIN 12.2 gm/dL (14.0-18.0); LYMPHOCYTES 14.9 %; MCH 31.5 pg (26.0-34.0); MCHC 33.7 g/dL (28.0-37.0); MCV 93.5 fL (80.0-100.0); MONOCYTES 7.5 %; NUCLEATED RBCS 0 /100WBC; PLATELET COUNT* 218 thou/uL (150-400); POLYS 76.3 %; RBC 3.86 mil/uL (4.50-6.00); RDW-CV 14.6 % (10.5-14.5); WBC 9.5 thou/uL (4.0-11.0)
[2020-03-25 04:54] LABS: ALBUMIN 2.5 g/dL (3.4-5.0); CALCIUM 8.1 mg/dL (8.5-10.1); CREATININE 1.3 mg/dL (0.6-1.3); MAGNESIUM 1.9 mg/dL (1.8-2.4); POTASSIUM 4.1 mmol/L (3.5-5.1); TOTAL BILIRUBIN 0.5 mg/dL (<0.1-1.0); TOTAL PROTEIN 6.4 g/dL (6.4-8.2)
[2020-03-25 07:30] VITALS: BP 131/68
[2020-03-25 17:52] VITALS: BP 126/71
[2020-03-25 20:00] VITALS: BP 134/74
[2020-03-26] VITALS: BP 138/73
[2020-03-26 04:00] VITALS: BP 145/76
[2020-03-26 04:58] LABS: CREATININE 1.3 mg/dL (0.6-1.3); POTASSIUM 3.6 mmol/L (3.5-5.1)
[2020-03-26 07:30] VITALS: BP 139/83
[2020-03-26 11:57] VITALS: BP 128/77
[2020-03-26 16:06] VITALS: BP 127/75
[2020-03-26 20:00] VITALS: BP 141/82
[2020-03-27 04:00] VITALS: BP 150/92
[2020-03-27 05:44] LABS: CALCIUM 8.1 mg/dL (8.5-10.1); CREATININE 1.3 mg/dL (0.6-1.3); POTASSIUM 3.8 mmol/L (3.5-5.1)
[2020-03-27 08:10] VITALS: BP 148/87
--- NOTE | 2020-03-27 09:46 | EKG ---
[place] [address] ELECTROCARDIOGRAM REPORT Name: TAMIA FUENTES Room: [address] ADM IN M.R.#: [id number] Admission: 03/22/20 Attend Phys: Rene Amaya Discharge: Date of : 51 Date of Service: 03/27/2005 Report #: [id number] THIS REPORT FOR: //name// [facility] Test Date: 2020-03-27 Test Time: 09:05:57 Pat Name: TAMIA FUENTES Department: Room: [address] Gender: M Stoker Erector: : 1955 Requested By: Dontrell Spicer Order Number: [id number] Reading MD: Dontrell Spicer Measurements Intervals [place] Rate: 71 P: 30 MA: 168 QRS: -18 QRSD: 108 T: 145 QT: 392 QTc: 426 Interpretive Statements Sinus rhythm Borderline left axis deviation Abnormal R-wave progression, late transition Nonspecific T abnrm, anterolateral leads Compared to ECG 03/24/2020 10:51:43 ST (T wave) deviation now present Atrial fibrillation no longer present Electronically Signed On 03-27-2020 9:46:39 CDT by Dontrell Spicer [email or web address] <ELECTRONICALLY SIGNED> By: Dontrell Spicer MD, FACC 03/27/20945 4 4 Dontrell Spicer MD, FAC /EPI
[2020-03-27 12:36] VITALS: BP 132/78
[2020-03-27 20:00] VITALS: BP 123/72
[2020-03-28 00:39] VITALS: BP 129/77
[2020-03-28 05:25] LABS: HEMATOCRIT 39.5 % (42.0-52.0); HEMOGLOBIN 13.2 gm/dL (14.0-18.0); MCH 31.1 pg (26.0-34.0); MCHC 33.5 g/dL (28.0-37.0); MCV 92.8 fL (80.0-100.0); MPV 7.8 fl. (7.2-11.1); RBC 4.25 mil/uL (4.50-6.00); RDW-CV 14.6 % (10.5-14.5); WBC 7.3 thou/uL (4.0-11.0)
[2020-03-28 05:38] LABS: CALCIUM 8.2 mg/dL (8.5-10.1); CREATININE 1.3 mg/dL (0.6-1.3); MAGNESIUM 1.7 mg/dL (1.8-2.4); POTASSIUM 3.7 mmol/L (3.5-5.1)
[2020-03-28 05:46] LABS: URINE BILIRUBIN NEGATIVE (Negative); URINE BLOOD 2+ (Negative); URINE CLARITY CLEAR; URINE COLOR YELLOW; URINE GLUCOSE-RANDOM NEGATIVE (Negative); URINE KETONES NEGATIVE (Negative); URINE LEUKOCYTES-REFLEX NEGATIVE (Negative); URINE NITRITE-REFLEX NEGATIVE (Negative); URINE PROTEIN NEGATIVE (Negative); URINE SPECIFIC GRAVITY 1.025 (1.005-1.030)
[2020-03-28 05:52] LABS: BACTERIA-REFLEX 1-9 Few /HPF (None Seen); CASTS None Seen /LPF (None Seen); CRYSTALS None Seen /LPF (None Seen); MUCUS 0-3 Light strn/LPF (None Seen); SQUAMOUS 0-3 Few /LPF (0-3); URINE RBC 3-10 Few /HPF (0-2); URINE WBC-REFLEX 0-5 Rare /HPF (0-5)
[2020-03-28 08:00] VITALS: BP 133/82
[2020-03-28] MEDS ORDERED: POTASSIUM20 PO (08:10)
[2020-03-28] MEDS ORDERED: ELIQUIS5 MG PO (08:10)
[2020-03-28] MEDS ORDERED: CARDIZEM LA240 M1 PO (08:10)
[2020-03-28] MEDS ORDERED: FLORASTOR250 MG PO (08:10)
[2020-03-28] MEDS ORDERED: LASIX 40 MG TAB40 M1 PO (08:10)
[2020-03-28] MEDS ORDERED: COZAAR 50 MG TA50 M1 PO (08:10)
[2020-03-28] MEDS ORDERED: LEVALBUTER1.25 MG/0. INH (08:10)
[2020-03-28] MEDS ORDERED: IPRATROPIU0.2 MG/1 M INH (08:10)
[2020-03-28] MEDS ORDERED: PACERONE 200 M200 M1 PO (08:10)
[2020-03-28] MEDS ORDERED: DOXYCYCLINE 10100 MG PO (08:10)
[2020-03-28 11:30] VITALS: BP 133/82
--- NOTE | 2020-03-28 23:19 | CON ---
[address] [address] CONSULTATION Name: TAMIA FUENTES Room: [address] IN .R.#: [id number] Admission: 03/22/20 Attend Phys: Rene Greco, Discharge: 03/28/20 Date of : 51 Report #: [id number] THIS REPORT FOR: //name// cc: Physician not on staff Physician not on staff ~ THIS REPORT FOR: //name// CC: TSERING WILDE Physician staff Rene Greco DATE OF SERVICE: 03/22/2020 Consult has been requested by Dr. Greco. INDICATION FOR CONSULTATION: DVT/swelling of lower extremities/shortness of breath. HISTORY OF PRESENT ILLNESS: A 64-year-old gentleman. His past medical history includes a history of obstructive sleep apnea. He has not been using a CPAP at home recently. The patient is a lifetime nonsmoker. He also does have a history of lymphedema. He was recently admitted to this hospital. During the previous hospitalization, the patient is noted to have had a DVT. He also had acute renal failure and was treated initially with ceftriaxone and then with cefdinir for pulmonary infiltrates. The patient was noted also to be in paroxysmal atrial fibrillation. Considering that he had a thrombosis and also had paroxysmal atrial fibrillation, the patient was started on Eliquis, which was continued upon discharge. The patient, however, states that as soon as he went home, he discontinued use of Eliquis and has not been using since. The patient is now here because his legs are swelling up more. It appears that his left leg that is swelling up more, which is the side where he has had the DVT. There is also erythema of the left lower extremity. The patient has had shortness of breath. He says that this has persistent since he went home. He does have a cough. There is not much sputum. There is no chest pain. He does not have upper respiratory complaints. The patient has disturbed sleep at night and sleepiness during the day. These symptoms remain at baseline. He has not had fever or chills recently. I asked him 12 questions for review of systems. The patient reported that he has had weight gain. He has been feeling weak. He also says he has muscle weakness and stiffness. REVIEW OF SYSTEMS: The patient's review of systems for 14 points is negative except as mentioned above. PAST MEDICAL HISTORY: Recent acute renal failure as above, recent DVT for which the patient has not been taking anticoagulation [place] [address] CONSULTATION Name: GINATAMIA Room: [address]#: [id number] Admission: 03/22/20 Attend Phys: Rene Greco, Discharge: 03/28/20 Date of : 51 Report #: [id number] infiltrates. Recently diagnosed paroxysmal atrial fibrillation. The patient has received amiodarone recently as well. He has an echocardiogram performed earlier this month, which shows a left ventricular ejection fraction of 55% to 60%. There is also mild left ventricular hypertrophy. The pulmonary artery systolic is elevated to 50-55, obstructive sleep apnea. He has used the CPAP in the past, but has not used recently. SOCIAL HISTORY: Lifetime nonsmoker. No known history of heavy alcohol use or illegal drug use. CURRENT MEDICATIONS: In [facility] reviewed. HOME MEDICATIONS: List in [employer] has also reviewed. The patient, however, reports that he is noncompliant with home medications. Specifically he states that he has not been taking anticoagulation at home as prescribed. FAMILY HISTORY: There is no known pertinent family history. PHYSICAL EXAMINATION: GENERAL: He is alert, awake and oriented. VITAL SIGNS: Has a pulse of 81 and a blood pressure of 143/70. Mild elevation in temperature to 37.3. He is on room air. He is saturating 95%. HEENT: Head is normocephalic and atraumatic. Pupils are equal and reactive. There is no throat erythema. There is no thrush in his throat. He has a narrow airway. NECK: No raised JVP, mass or palpable lymph node CHEST: Symmetrical expansion on inspection and palpation. On auscultation, breath sounds are significantly decreased bilaterally, but equal. I do not hear any added sounds. HEART: Regular. There is no murmur. ABDOMEN: Mildly distended, nontender. EXTREMITIES: Lower extremities do show edema bilaterally, which is more on the left than the right. There is some warmth of the lower extremities bilaterally. There is erythema of the left lower extremity. SKIN: Still is dry and intact. NEUROLOGICAL: He does move all extremities bilaterally equally and spontaneously with no focal deficit identified. LABORATORY DATA: The patient's chest x-ray performed yesterday is reviewed and compared with the patient's previous chest x-ray. There is some increase in reticular markings, likely due to mild increase in pulmonary vascular congestion compared to the patient's previous chest x-ray. There is a small radiopaque density at the left lung base, which could indicate a new infiltrate or area of atelectasis. A pleural effusion would be a less likely etiology for this finding. The patient also had a perfusion scan yesterday, which shows a new filling defect as well. [address] [place] [address] CONSULTATION Name: TAMIA FUENTES Room: [address]#: [id number] Admission: 03/22/20 Attend Phys: Rene Greco, Discharge: 03/28/20 Date of : 51 Report #: [id number] ASSESSMENT AND PLAN: 1. Deep vein thrombosis with acute pulmonary emboli. The patient has not been taking anticoagulation at home as prescribed. It, therefore, appears likely that a deep vein thrombosis in his lower extremities has progressed and as indicated by the perfusion scan, it appears that he has now developed a new acute pulmonary emboli as well. This appears to be the etiology of his worsening condition over the last 2 weeks including swelling of lower extremities. The patient is very high risk for IV dye contrast nephropathy and therefore, I decided to not order a CTA chest at this time. We potentially could obtain a repeat venous Dopplers; however, this will not change person. I, however, do want to obtain a repeat echocardiogram and look at the right heart pressures. The patient is currently on 5 mg of Eliquis b.i.d. Considering that he has not in fact been taking it at home. For now, I will increase this to 10 mg b.i.d., which is the initial dose for deep vein thrombosis and pulmonary embolism. 2. Obstructive sleep apnea. For now, I ordered a BiPAP and AVAPS mode while asleep. The patient would in fact benefit from a BiPAP while asleep technician terminal and repeater. We will try to obtain a sleep study as an outpatient and try to get him qualified through his insurance. 3. Lymphedema/recent acute renal failure. Chest x-ray as above. He likely has some component of fluid overload as well. I decided to only watch for now, but I will reassess tomorrow. We potentially could give him some Lasix if his creatinine remains stable, possibly with some albumin to protect his kidneys and follow response. 4. Erythema. Left lower extremity/possible left lower lobe infiltrate. The erythema in the left lower extremity, may be due to deep vein thrombosis. Also, the capacity at the left lung base, could be only atelectasis. Regardless, I for now did go ahead and decide to treat him with doxycycline and also obtain a sputum culture and nasal swab for methicillin-resistant Staphylococcus aureus. Note that he received ceftriaxone as well as cefdinir recently. Should the patient's condition deteriorate, I would recommend considering starting linezolid. 5. Bronchospasm. I feel there is a component of this as well. Breath sounds are significantly decreased on exam. Two doses of Solu-Medrol as well as nebulized bronchodilators are ordered. 6. Paroxysmal atrial fibrillation. Note that he is also on amiodarone. Heart rate is within the normal range at this time. 7. Morbid obesity. Thanks for this consultation. <ELECTRONICALLY SIGNED> By: Scooter Sarkar MD 03/28/20 2319 1731 [id number] Sarkar MD /nt
== END 2020-03-28 11:48 | DRG 175 ==
LOC: M.ERS 13:25 → M.ORTHSURG 15:39 → M.TBA-ER 15:39 → M.ORTHSURG 17:32 → M.3W 03-23 16:27 → M.2W 03-24 12:19
PROVIDERS: Emergency Medicine Emergency Medical Services; Internal Medicine; Internal Medicine Cardiovascular Disease; Internal Medicine Critical Care Medicine; ADMIT Family Medicine; ATTEND Family Medicine
DX: I26.99 Other pulmonary embolism without acute cor pulmonale (principal); N17.0 Acute kidney failure with tubular necrosis; J69.0 Pneumonitis due to inhalation of food and vomit; L03.116 Cellulitis of left lower limb; I48.20 Chronic atrial fibrillation, unspecified; D68.69 Other thrombophilia; I82.4Z2 Acute embolism and thrombosis of unspecified deep veins of left distal lower extremity; Z68.42 Body mass index [BMI] 45.0-49.9, adult; R53.81 Other malaise; G47.33 Obstructive sleep apnea (adult) (pediatric); E11.22 Type 2 diabetes mellitus with diabetic chronic kidney disease; I12.9 Hypertensive chronic kidney disease with stage 1 through stage 4 chronic kidney disease, or unspecified chronic kidney disease; N18.30 Chronic kidney disease, stage 3 unspecified; R53.1 Weakness; I89.0 Lymphedema, not elsewhere classified; J98.01 Acute bronchospasm; I48.0 Paroxysmal atrial fibrillation; E66.01 Morbid (severe) obesity due to excess calories; Z20.828 Contact with and (suspected) exposure to other viral communicable diseases; Z79.01 Long term (current) use of anticoagulants; Z79.899 Other long term (current) drug therapy

== ENCOUNTER 2020-03-28 11:15 | Inpatient (IN) | payer MEDICARE ==
[~2020-03-28] VITALS: Ht 198.1 cm; Wt 176.9 kg
[~2020-03-28 11:15] MED LIST changes: +CARDIZEM LA240 M1 PO; +COZAAR 50 MG TA50 M1 PO; +DOXYCYCLINE 10100 MG PO; +FLORASTOR250 MG PO; +IPRATROPIU0.2 MG/1 M INH; +LASIX 40 MG TAB40 M1 PO; +LEVALBUTER1.25 MG/0. INH; +POTASSIUM20 PO
[2020-03-28 12:57] VITALS: BP 121/84
[2020-03-28 19:00] VITALS: BP 145/72
[2020-03-29 04:39] LABS: HEMATOCRIT 40.9 % (42.0-52.0); HEMOGLOBIN 13.9 gm/dL (14.0-18.0); MCH 31.7 pg (26.0-34.0); MCV 93.3 fL (80.0-100.0); MPV 7.6 fl. (7.2-11.1); RBC 4.38 mil/uL (4.50-6.00); RDW-CV 14.7 % (10.5-14.5); WBC 7.9 thou/uL (4.0-11.0)
[2020-03-29 04:53] LABS: CALCIUM 8.5 mg/dL (8.5-10.1); CREATININE 1.4 mg/dL (0.6-1.3); POTASSIUM 3.6 mmol/L (3.5-5.1)
[2020-03-29 07:00] VITALS: BP 149/82
[2020-03-29 20:00] VITALS: BP 128/69
[2020-03-30 08:14] VITALS: BP 119/82
[2020-03-30 20:00] VITALS: BP 134/83
[2020-03-31 04:02] LABS: CALCIUM 8.6 mg/dL (8.5-10.1); CREATININE 1.8 mg/dL (0.6-1.3); POTASSIUM 3.8 mmol/L (3.5-5.1)
[2020-03-31 08:08] VITALS: BP 138/64
[2020-03-31 20:00] VITALS: BP 112/68
[2020-04-01 07:30] VITALS: BP 117/71
[2020-04-01 19:00] VITALS: BP 109/70
[2020-04-02 08:00] VITALS: BP 126/79
[2020-04-02 19:28] VITALS: BP 95/56
[2020-04-02 21:08] VITALS: BP 125/76
[2020-04-03 07:00] VITALS: BP 117/66
[2020-04-03 19:00] VITALS: BP 101/65
[2020-04-04 02:06] LABS: GLYCOHEMOGLOBIN (HGB A1C) 6.7 % (4.8-5.6)
[2020-04-04 07:30] VITALS: BP 119/82
[2020-04-04 19:00] VITALS: BP 107/61
[2020-04-05 07:30] VITALS: BP 126/79
[2020-04-05 08:04] VITALS: BP 126/79
[2020-04-05 14:33] LABS: ABSOLUTE BASOPHILS 0.1 thou/uL (0.0-0.2); ABSOLUTE EOSINOPHILS 0.1 thou/uL (0.0-0.7); ABSOLUTE MONOCYTES 0.7 thou/uL (0.0-1.2); ABSOLUTE NEUTROPHILS 5.3 thou/uL (1.6-8.1); BASOPHILS 0.7 %; EOSINOPHILS 1.2 %; HEMATOCRIT 43.6 % (42.0-52.0); HEMOGLOBIN 14.2 gm/dL (14.0-18.0); LYMPHOCYTES 24.6 %; MCH 31.1 pg (26.0-34.0); MCHC 32.5 g/dL (28.0-37.0); MCV 95.7 fL (80.0-100.0); MONOCYTES 8.3 %; MPV 7.8 fl. (7.2-11.1); NUCLEATED RBCS 0 /100WBC; PLATELET COUNT* 280 thou/uL (150-400); POLYS 65.2 %; RBC 4.55 mil/uL (4.50-6.00); WBC 8.1 thou/uL (4.0-11.0)
[2020-04-05 14:46] LABS: ALBUMIN 3.2 g/dL (3.4-5.0); CALCIUM 8.4 mg/dL (8.5-10.1); CREATININE 2.2 mg/dL (0.6-1.3); POTASSIUM 4.7 mmol/L (3.5-5.1); TOTAL BILIRUBIN 0.6 mg/dL (<0.1-1.0); TOTAL PROTEIN 7.5 g/dL (6.4-8.2)
[2020-04-05 19:00] VITALS: BP 101/53
[2020-04-06 08:00] VITALS: BP 121/71
[2020-04-06 19:55] VITALS: BP 98/56
[2020-04-07 08:00] VITALS: BP 149/82
[2020-04-07 14:21] LABS: ABSOLUTE BASOPHILS 0.1 thou/uL (0.0-0.2); ABSOLUTE EOSINOPHILS 0.2 thou/uL (0.0-0.7); ABSOLUTE LYMPHOCYTES 2.6 thou/uL (0.8-5.3); ABSOLUTE MONOCYTES 0.8 thou/uL (0.0-1.2); ABSOLUTE NEUTROPHILS 5.1 thou/uL (1.6-8.1); BASOPHILS 1.2 %; EOSINOPHILS 2.4 %; HEMATOCRIT 43.2 % (42.0-52.0); HEMOGLOBIN 14.2 gm/dL (14.0-18.0); LYMPHOCYTES 29.2 %; MCHC 32.9 g/dL (28.0-37.0); MCV 94.2 fL (80.0-100.0); MONOCYTES 9.5 %; MPV 8.1 fl. (7.2-11.1); NUCLEATED RBCS 0 /100WBC; PLATELET COUNT* 305 thou/uL (150-400); POLYS 57.7 %; RBC 4.59 mil/uL (4.50-6.00); RDW-CV 15.6 % (10.5-14.5); WBC 8.8 thou/uL (4.0-11.0)
[2020-04-07 14:24] LABS: ALBUMIN 3.4 g/dL (3.4-5.0); CALCIUM 9.1 mg/dL (8.5-10.1); CREATININE 2.5 mg/dL (0.6-1.3); POTASSIUM 4.9 mmol/L (3.5-5.1); TOTAL BILIRUBIN 0.5 mg/dL (<0.1-1.0); TOTAL PROTEIN 7.9 g/dL (6.4-8.2)
[2020-04-07 18:57] LABS: URINE BILIRUBIN NEGATIVE (Negative); URINE BLOOD TRACE (Negative); URINE CLARITY CLEAR; URINE COLOR YELLOW; URINE GLUCOSE-RANDOM NEGATIVE (Negative); URINE KETONES TRACE (Negative); URINE LEUKOCYTES-REFLEX NEGATIVE (Negative); URINE NITRITE-REFLEX NEGATIVE (Negative); URINE PROTEIN NEGATIVE (Negative); URINE SPECIFIC GRAVITY 1.025 (1.005-1.030); URINE UROBILINOGEN 0.2 E.U./dl (0.2-1.0)
[2020-04-07 20:00] VITALS: BP 108/63
[2020-04-08 08:00] VITALS: BP 118/58
[2020-04-08 20:00] VITALS: BP 90/58
[2020-04-09 08:19] VITALS: BP 117/68
[2020-04-09 12:49] LABS: ABSOLUTE LYMPHOCYTES 2.1 thou/uL (0.8-5.3); HEMATOCRIT 41.1 % (42.0-52.0); NUCLEATED RBCS 0 /100WBC; RDW-CV 15.6 % (10.5-14.5)
[2020-04-09 12:54] LABS: ABSOLUTE BASOPHILS 0.2 thou/uL (0.0-0.2); ABSOLUTE EOSINOPHILS 0.2 thou/uL (0.0-0.7); ABSOLUTE MONOCYTES 0.6 thou/uL (0.0-1.2); ABSOLUTE NEUTROPHILS 3.4 thou/uL (1.6-8.1); BASOPHILS 2.4 %; EOSINOPHILS 3.1 %; HEMOGLOBIN 13.4 gm/dL (14.0-18.0); LYMPHOCYTES 32.5 %; MCH 30.6 pg (26.0-34.0); MCHC 32.6 g/dL (28.0-37.0); MCV 93.9 fL (80.0-100.0); MONOCYTES 8.7 %; MPV 7.9 fl. (7.2-11.1); PLATELET COUNT* 283 thou/uL (150-400); POLYS 53.3 %; RBC 4.38 mil/uL (4.50-6.00); WBC 6.4 thou/uL (4.0-11.0)
[2020-04-09 13:00] LABS: ALBUMIN 3.2 g/dL (3.4-5.0); CALCIUM 8.8 mg/dL (8.5-10.1); CREATININE 2.3 mg/dL (0.6-1.3); PHOSPHORUS* 3.7 mg/dL (2.5-4.9); POTASSIUM 4.9 mmol/L (3.5-5.1)
[2020-04-09 20:00] VITALS: BP 110/61
[2020-04-10 07:30] VITALS: BP 119/70
[2020-04-10 20:00] VITALS: BP 117/74
[2020-04-11 07:30] VITALS: BP 115/72
[2020-04-11 20:00] VITALS: BP 109/65
[2020-04-12 08:00] VITALS: BP 108/64
[2020-04-12 19:55] VITALS: BP 97/59
[2020-04-13 08:00] VITALS: BP 101/64
[2020-04-13 19:32] VITALS: BP 111/66
[2020-04-14 08:00] VITALS: BP 123/66
[2020-04-14 08:03] VITALS: BP 123/66
[2020-04-14 19:40] VITALS: BP 106/58
[2020-04-15 09:02] VITALS: BP 111/65
[2020-04-15 13:28] VITALS: BP 111/65
== END 2020-04-15 16:30 | disposition home health service (06) | DRG 947 ==
LOC: M.REH 11:15
PROVIDERS: Family Medicine; Internal Medicine; ADMIT Physical Medicine & Rehabilitation; ATTEND Physical Medicine & Rehabilitation
DX: R53.81 Other malaise (principal); I48.20 Chronic atrial fibrillation, unspecified; N17.0 Acute kidney failure with tubular necrosis; Z68.42 Body mass index [BMI] 45.0-49.9, adult; D68.59 Other primary thrombophilia; L03.116 Cellulitis of left lower limb; I82.402 Acute embolism and thrombosis of unspecified deep veins of left lower extremity; E66.01 Morbid (severe) obesity due to excess calories; I12.9 Hypertensive chronic kidney disease with stage 1 through stage 4 chronic kidney disease, or unspecified chronic kidney disease; G47.33 Obstructive sleep apnea (adult) (pediatric); D64.9 Anemia, unspecified; E11.22 Type 2 diabetes mellitus with diabetic chronic kidney disease; N18.30 Chronic kidney disease, stage 3 unspecified; Z87.01 Personal history of pneumonia (recurrent); Z86.718 Personal history of other venous thrombosis and embolism; Z79.01 Long term (current) use of anticoagulants; Z86.711 Personal history of pulmonary embolism; M79.89 Other specified soft tissue disorders

== ENCOUNTER 2020-06-15 19:42 | Emergency (ER) | payer MEDICARE ==
[~2020-06-15] VITALS: Ht 198.1 cm; Wt 217.8 kg
[2020-06-15] MEDS ORDERED: [UNRECOGNIZED DRUG - REMARK] (20:18)
[2020-06-15 20:22] LABS: ABSOLUTE BASOPHILS 0.1 thou/uL (0.0-0.2); ABSOLUTE LYMPHOCYTES 2.3 thou/uL (0.8-5.3); ABSOLUTE MONOCYTES 0.6 thou/uL (0.0-1.2); ABSOLUTE NEUTROPHILS 4.5 thou/uL (1.6-8.1); BASOPHILS 1.4 %; EOSINOPHILS 0.1 %; HEMATOCRIT 39.3 % (42.0-52.0); HEMOGLOBIN 13.1 gm/dL (14.0-18.0); LYMPHOCYTES 31.1 %; MCH 30.6 pg (26.0-34.0); MCHC 33.3 g/dL (28.0-37.0); MONOCYTES 7.7 %; NUCLEATED RBCS 0 /100WBC; PLATELET COUNT* 216 thou/uL (150-400); POLYS 59.7 %; RBC 4.27 mil/uL (4.50-6.00); RDW-CV 15.5 % (10.5-14.5); WBC 7.5 thou/uL (4.0-11.0)
[2020-06-15 20:25] LABS: INFLUENZA A ANTIGEN Negative (Negative); INFLUENZA B ANTIGEN Negative (Negative)
[2020-06-15 20:31] LABS: CALCIUM 8.1 mg/dL (8.5-10.1); CREATININE 1.7 mg/dL (0.6-1.3)
[2020-06-15 20:40] LABS: INR 1.2; PROTIME 12.7 Seconds (9.20-11.50)
[2020-06-15 20:42] LABS: ALBUMIN 3.2 g/dL (3.4-5.0); TOTAL BILIRUBIN 0.4 mg/dL (<0.1-1.0); TOTAL PROTEIN 7.2 g/dL (6.4-8.2)
[2020-06-15 20:44] LABS: POTASSIUM 2.7 mmol/L (3.5-5.1)
[2020-06-16 01:15] VITALS: BP 123/93
--- NOTE | 2020-06-16 12:43 | EKG ---
[place] [address] ELECTROCARDIOGRAM REPORT Name: TAMIA FUENTES Room: [facility]#: [id number] Admission: 06/15/20 Attend Phys: Discharge: 06/16/20 Date of : 51 Date of Service: 06/15/202141 Report #: [id number] THIS REPORT FOR: //name// [facility] ED Test Date: 2020-06-15 Test Time: 21:42:50 Pat Name: TAMIA FUENTES Department: Room: [place] [address] Gender: M Scrap Drop Operator: : 1955 Requested By: Na Gusman Order Number: [id number] MD: Abram Pulido Measurements Intervals [place] Rate: 97 P: [place]: QRS: -50 QRSD: 151 T: 258 QT: 381 QTc: 484 Interpretive Statements Atrial flutter LEFT AXIS DEVIATION Abnormal T, consider ischemia, anterior leads Baseline wander in lead(s) V6 Compared to ECG 06/15/2020 20:00:06 Left ventricular hypertrophy now present T-wave abnormality still present Possible ischemia Electronically Signed On 06-16-2020 12:43:48 LATHE WINDER by Abram Pulido [email or web address] <ELECTRONICALLY SIGNED> By: Abram Pulido MD, FACC 06/16/20 1243 41 41 Abram Pulido MD, FACC /EPI
--- NOTE | 2020-06-16 12:43 | EKG ---
[place] [address] ELECTROCARDIOGRAM REPORT Name: TAMIA FUENTES Room: [facility]#: [id number] Admission: 06/15/20 Attend Phys: Discharge: 06/16/20 Date of : 51 Date of Service: 06/15/201999 Report #: [id number] THIS REPORT FOR: //name// [facility] ED Test Date: 2020-06-15 Test Time: 20:00:06 Pat Name: TAMIA FUENTES Department: Room: [facility] Gender: M Inker And Opaquer: : 1955 Requested By: Na Gusman Order Number: [id number] MD: Abram Pulido Measurements Intervals [place] Rate: 133 P: -76 ME: 153 QRS: -86 QRSD: 152 T: QT: 354 QTc: 527 Interpretive Statements Supraventricular tachycardia, suspect atrial flutter with 2:1 conduction Left axis deviation Nonspecific T wave abnormality Compared to ECG 03/27/2020 09:05:57 T-wave abnormality now present Sinus rhythm no longer present Electronically Signed On 06-16-2020 12:42:54 ORNAMENT STITCHER by Abram Pulido [email or web address] <ELECTRONICALLY SIGNED> By: Abram Pulido MD, FACC 06/16/20 1242 99 99 Abram Pulido MD, FACC /EPI
== END 2020-06-16 01:15 | disposition short-term general hospital (02) ==
LOC: M.ERS 19:42 → M.TBA-ER 21:10 → M.ERS 21:10
PROVIDERS: Emergency Medicine
DX: I48.91 Unspecified atrial fibrillation (principal); R06.03 Acute respiratory distress; I89.0 Lymphedema, not elsewhere classified; Z20.828 Contact with and (suspected) exposure to other viral communicable diseases; E66.01 Morbid (severe) obesity due to excess calories; G47.33 Obstructive sleep apnea (adult) (pediatric); I13.10 Hypertensive heart and chronic kidney disease without heart failure, with stage 1 through stage 4 chronic kidney disease, or unspecified chronic kidney disease; N18.9 Chronic kidney disease, unspecified; Z87.01 Personal history of pneumonia (recurrent); Z86.718 Personal history of other venous thrombosis and embolism